=== PATIENT | male | born 1975 | race Caucasian/White ===

== ENCOUNTER 2017-09-11 06:19 | Day surgery (SDC) | payer OTHER ==
--- NOTE | ~2017-09-11 | OP ---
PATIENT NAME: NELLIE NAILS MEDICAL RECORD: [id number] :75 LOCATION:[facility] ADMISSION DATE: SURGEON: MILTON LOVE MD DATE OF OPERATION: 09/11/2017 PREOPERATIVE DIAGNOSIS: Acute appendicitis. POSTOPERATIVE DIAGNOSIS: Acute versus chronic appendicitis, path pending. PROCEDURE: Laparoscopic appendectomy. SURGEON: Milton Love MD VEGETABLE WORKER: None. BLOOD LOSS: Minimal. ANESTHESIA: General. COMPLICATIONS: None. The risks, possible complications and alternatives of the procedure were explained to the patient. He elects to proceed. OPERATIVE COURSE: The patient was conveyed to the operating room electively on 09/11/2017. General anesthesia was induced by the anesthesia staff. The abdomen was sterilely prepped and draped. An incision was accomplished within the umbilicus. I dissected down to the incarcerated fat within the umbilical hernia. The incarcerated fat was excised. The small hernia defect was noted. A horizontal mattress 0 Ethibond suture was applied around the hernia defect. A 12-mm trocar was inserted through the hernia defect. CO2 insufflation was begun. Once a sufficient pneumoperitoneum had been achieved, 2 more trocars were inserted. One was inserted in the right lower quadrant and the other in the left lower quadrant. These were both 5-mm trocars. The appendix was easily identified. It was grasped. I took down the mesoappendix with the laparoscopic EnSeal device. I then divided the tip of the cecum with an Endo-CARA type stapler utilizing blue loads. The appendix was placed within a bag retrieval device. It was withdrawn through the umbilical fascia defect. I then replaced the 12-mm trocar. I irrigated and aspirated in the right lower quadrant. There was no bleeding. All the trocars were removed and the abdomen was desufflated. I then tightened down on the Ethibond suture and this closed the hernia defect. The skin at the umbilicus was closed with interrupted 4-0 Vicryl Rapide sutures. The other skin incisions were closed with interrupted intracuticular 4-0 Vicryls. Benzoin and Steri-Strips were applied. The patient was then extubated and conveyed to postanesthesia care unit where he was in stable condition. He will be dismissed back to the long-term. TRANSINT:[id number] Voice Confirmation ID: [id number] DOCUMENT ID: [id number] OPERATIVE REPORT [id number] NELLIE NAILS, MILTON ANN at 1607 CC: [id number] DICTATION DATE: 09/11/17 1455 DIETARY COOK: 09/11/17 1539 [facility] [place] 09/11/17 [place] [id number] [place] [id number]
[2017-09-11 08:13] VITALS: BP 126/92; BMI 25.1
== END 2017-09-11 16:45 | disposition home or self-care (01) ==
LOC: D.OPS 06:19
DX: K35.80 Unspecified acute appendicitis (principal); I10 Essential (primary) hypertension; Z01.812 Encounter for preprocedural laboratory examination